=== PATIENT | male | born 1945 | race Caucasian/White ===

== ENCOUNTER 2016-08-08 23:57 | Emergency (ER) | payer MEDICARE, OTHER ==
[~2016-08-08] VITALS: Ht 185.4 cm; Wt 80.0 kg
[~2016-08-08 23:57] MED LIST: ARIP10TA14 PO; CLON2 PO; GABA-531 PO; METH10SO PO; TRAZ150T85 PO
[2016-08-09 00:03] VITALS: BP 123/71
== END 2016-08-09 00:46 | disposition left against medical advice (07) ==
LOC: EMS 23:59
DX: Z00.8 Encounter for other general examination (principal); Z53.21 Procedure and treatment not carried out due to patient leaving prior to being seen by health care provider

== ENCOUNTER 2016-08-09 01:58 | Emergency (ER) | payer MEDICARE, OTHER ==
[~2016-08-09] VITALS: Ht 182.9 cm; Wt 80.0 kg
[2016-08-09 02:50] VITALS: BP 132/70
== END 2016-08-09 03:03 | disposition home or self-care (01) ==
LOC: EMS 02:02
DX: G89.29 Other chronic pain (principal); Z00.00 Encounter for general adult medical examination without abnormal findings; F11.90 Opioid use, unspecified, uncomplicated; F17.210 Nicotine dependence, cigarettes, uncomplicated; Z88.0 Allergy status to penicillin; Z88.6 Allergy status to analgesic agent
CPT/HCPCS: 99281

== ENCOUNTER 2019-02-18 02:06 | Emergency (ER) | payer MEDICARE, OTHER ==
[~2019-02-18] VITALS: Ht 185.4 cm; Wt 81.8 kg
[~2019-02-18 02:06] MED LIST changes: -ARIP10TA14 PO; +ARIP10TA8 PO; +TRAZ150T79 PO; -TRAZ150T85 PO
[2019-02-18 02:49] VITALS: BP 142/78
== END 2019-02-18 03:43 | disposition home or self-care (01) ==
LOC: EMS 02:08
DX: M79.671 Pain in right foot (principal); M79.672 Pain in left foot; F31.9 Bipolar disorder, unspecified; F17.210 Nicotine dependence, cigarettes, uncomplicated; F11.90 Opioid use, unspecified, uncomplicated; Z86.73 Personal history of transient ischemic attack (TIA), and cerebral infarction without residual deficits; Z59.0 Homelessness; Z88.0 Allergy status to penicillin; Z88.6 Allergy status to analgesic agent